=== PATIENT | male | born 1940 | race Caucasian/White ===

== ENCOUNTER → 2023-04-19 | Emergency (ER) | payer OTHER ==
[~2023-04-19] MED LIST: KETOROLAC 30 MG/ML INJ ONE
[2023-04-19 11:48] LABS: Absolute Lymphocytes (CBC) 0.8 K/uL (0.7-4.9); Hematocrit 39.4 % (39.6-49.0); Lymphocytes % 12.1 % (15.3-44.8); MCV 91.5 fL (80-100); MPV 9.4 fL (7.6-11.3); Platelets 224 thou/uL (152-406); RBC Red Blood Cell Count 4.31 M/uL (4.33-5.43)
--- NOTE | 2023-04-19 11:50 | RAD REPORT ---
EXAM DESCRIPTION: CT - CTHCSPWOC - 04/19/2023 11:39 am CLINICAL HISTORY: Trauma, head and neck injury. fall COMPARISON: No comparisons TECHNIQUE: Axial 5 mm thick images of the head were obtained. Axial 2 mm thick images of the cervical spine were obtained with sagittal and coronal reconstruction images generated and reviewed. All CT scans are performed using dose optimization technique as appropriate and may include automated exposure control or mA/KV adjustment according to patient size. FINDINGS: CT HEAD WITHOUT CONTRAST: No acute hemorrhage, hydrocephalus or extra-axial collection is identified.No areas of brain edema or midline shift. Chronic small vessel ischemic changes which are mild. Age advanced cerebral atrophy. Linear metallic structure along the inferior margin of the left maxillary sinus within the maxillary bone may be postsurgical. The paranasal sinuses and mastoids are clear.The calvarium is intact. CT CERVICAL SPINE WITHOUT CONTRAST: No fracture or traumatic subluxation.No prevertebral soft tissues swelling is identified. Proximally 2 millimeters anterolisthesis of C3 on C4 is noted. Varying degrees of neural foraminal narrowing not ed bilaterally. There is evidence of severe neural foraminal narrowing bilaterally at C4-5 and C5-6. No high-grade central spinal stenosis identified. Carotid artery calcifications. 1.6 cm left thyroid nodule. Thyroid ultrasound is recommended for thyroid nodules of this size but only if clinically ind icated. IMPRESSION: No acute intracranial or cervical spine findings.
[2023-04-19 11:55] LABS: Potassium 4.3 mEq/L (3.5-5.1)
--- NOTE | 2023-04-19 11:55 | RAD REPORT ---
EXAM DESCRIPTION: CT - Thorax Wo Con - 04/19/2023 11:44 am CLINICAL HISTORY: fall; right back pain COMPARISON: No comparisons FINDINGS: Chest Wall: Thyroid nodules, the largest measuring 2.2 cm which meets imaging criteria for thyroid ultrasound but only if clinically indicated. Lungs: Emphysema. No suspicious pulmonary nodules or acute findings. Pleura: Question trace right pneumothorax. Mediastinum/beti: No pathologic lymphadenopathy. Pulmonary arteries/Aorta: Limited evaluation without contrast. No aortic aneurysm. Heart: No significant pericardial effusion. Normal heart size. Coronary artery calcifications. Upper abdomen: No acute abnormality. Bones: Right lateral sixth and seventh and posterior eighth and ninth rib fractures. The right latera l sixth rib fracture is displaced by a 1/3 shaft with while the others are not nondisplaced. Small sc lerotic focus in the T5 vertebral body is probably a bone island. All CT scans are performed using dose optimization technique as appropriate and may include automated exposure control or mA/KV adjustment according to patient size. IMPRESSION: Right sixth through ninth rib fractures. The right sixth rib fracture is mildly displace d body others are nondisplaced. No pneumothorax. Trace right hemothorax. No other evidence of signifi cant trauma identified.
[2023-04-19 12:45] LABS: Blood Morphology Comment NOT SEEN (NOT SEEN); Platelet Estimate ADEQ
--- NOTE | 2023-04-19 12:54 | ER ---
Nurse's Notes [facility] Name: José Miguel Golden Age: 83 yrs Sex: Male : 1940 Arrival Date: 04/19/2023 Time: 11:12 Bed 5 Private MD: Diagnosis: Multiple fractures of ribs, right side Presentation: 04/19 11:23 Chief complaint: Patient states: Slipped last night and fell on boat steps. R mid ll1 back/trunk pain since. Coronavirus screen: Vaccine status: Patient reports receiving the 2nd dose of the covid vaccine. Client denies travel out of the [place] in the last 14 days. At this time, the client does not indicate any symptoms associated with coronavirus-19. Ebola Screen: Patient denies travel to an Ebola-affected area in the 21 days before illness onset. Initial Sepsis Screen: Does the patient meet any 2 criteria? No. Patient's initial sepsis screen is negative. Does the patient have a suspected source of infection? No. Patient's initial sepsis screen is negative. Risk Assessment: Do you want to hurt yourself or someone else? Patient reports no desire to harm self or others. Onset of symptoms was April 18, 2023. 11:23 Method Of Arrival: Ambulatory ll1 11:23 Acuity: MANUEL 3 ll1 11:23 Care prior to arrival: None. Mechanism of Injury: Fall from standing position. Trauma cp4 event details: Injury occurred: at home. Trauma Activation: Not Applicable Physician: ED Physician; Name: ; Notified At: ; Arrived At: Physician: General Surgeon; Name: ; Notified At: ; Arrived At: Physician: Radiology; Name: ; Notified At: ; Arrived At: Physician: Respiratory; Name: ; Notified At: ; Arrived At: Physician: Lab; Name: ; Notified At: ; Arrived At: Historical: - Allergies: 11:25 No Known Allergies; ll1 - PMHx: 11:25 None; ll1 - PSHx: 11:25 None; ll1 - Immunization history:: Adult Immunizations up to date. - Social history:: Smoking status: Patient denies any tobacco usage or history of. - Immunization history: Last tetanus immunization: - up to date. Screenin:[facility] ED Fall Risk Assessment (Adult) History of falling in the last 3 months, cp4 including since admission Yes- single mechanical fall (1 pt) Confusion or Disorientation No (0 pts) Intoxicated or Sedated No (0 pts) Impaired Gait No (0 pts) Mobility Assist Device Used No (0 pt) Altered Elimination No (0 pt) Score/Fall Risk Level 0 - 2 = Low Risk Oriented to surroundings, Maintained a safe environment, Educated pt \T\ family on fall prevention, incl call for assistance when getting out of bed, Assessed \T\ reinforced patient's understanding of fall precautions, Provided non-skid footwear, Hourly rounding (assess needs \T\ fall precautionary measures) done. Abuse screen: Denies threats or abuse. Nutritional screening: No deficits noted. Tuberculosis screening: No symptoms or risk factors identified. Primary Survey: 11:15 NO uncontrolled hemorrhage observed. A: The client is awake and alert. The airway is cp4 patent. The client is alert. Airway: patent, Patient intubated prior to arrival Oral cavity: clear. Breathing/Chest: Spontaneous respiratory effort, equal unlabored respirations, breath sounds clear bilaterally, regular pattern, symmetrical chest rise and fall. Circulation: No external hemorrhage present. Regular and strong central pulse, skin warm/dry/normal color. Disability Pupils are equal, round, reactive to light and accommodation. Exposure/Environment: A warming method has been applied: A warm blanket has been provided to the patient. Reassessment Alertness and Airway: Awake and alert. The airway is patent. Breathing: Spontaneous respiratory effort, equal unlabored respirations, breath sounds clear bilaterally, regular pattern with symmetrical chest rise and fall. Circulation: No external hemorrhage noted. Regular and strong central pulse, skin warm/dry/normal color. Disability: Pupils. Assessment: 12:28 General: Appears in no apparent distress. Behavior is calm, cooperative, appropriate cp4 for age. Pain: Complains of pain in back. Vital Signs: 11:23 BP 143 / 76; Pulse 81; Resp 18; Temp 97.3; Pulse Ox 98% ; Weight 86.18 kg; Height 5 ft. ll1 9 in. ; Pain 10/10; 12:30 BP 143 / 76; Pulse 70; Resp 18; Pulse Ox 99% ; cp4 11:23 Body Mass Index 28.06 (86.18 kg, 175.26 cm) ll1 11:23 Pain Scale: Adult ll1 Aleida Coma Score: 12:30 Eye Response: spontaneous(4). Motor Response: obeys commands(6). Verbal Response: cp4 oriented(5). Total: 15. Trauma Score (Adult): 12:30 Eye Response: spontaneous(1); Verbal Response: oriented(1); Motor Response: obeys cp4 commands(2); Systolic BP: > 89 mm Hg(4); Respiratory Rate: 10 to 29 per min(4); Aleida Score: 15; Trauma Score: 12 ED Course: 11:13 Patient arrived in ED. ra3 11:15 Halley Renee, RN is Primary Nurse. kc6 11:18 Laci Quintana DO is Attending Physician. ms3 11:25 Triage completed. ll1 11:25 Arm band placed on Patient placed in an exam room, on a stretcher. ll1 11:33 Colleen Cueva is Primary Nurse. cp4 11:33 BMP Sent. cp4 11:33 CBC with Diff Sent. cp4 11:35 Inserted saline lock: 20 gauge in left antecubital area, using aseptic technique. Blood ds4 collected. 11:41 CT Head C Spine In Process Unspecified. EDMS 11:41 CT Chest Wo Con In Process Unspecified. EDMS 12:28 Bed in low position. Call light in reach. Side rails up X 1. cp4 12:28 No provider procedures requiring assistance completed. cp4 12:30 Patient maintains SpO2 saturation greater than 95% on room air. cp4 12:53 Ezra Warren DO is Referral Physician. ms3 13:27 Provided Education on: fall and rib fractures. cp4 13:27 Patient did not have IV access during this emergency room visit. intact, bleeding cp4 controlled, No redness/swelling at site. Pressure dressing applied. 13:31 Thermoregulation: warm blanket given to patient. cp4 Administered Medications: 11:51 Drug: Ketorolac IVP 10 mg 10 mg IVP once Route: IVP; Site: right antecubital; cp4 Medication: 12:28 VIS not applicable for this client. cp4 Intake: 12:30 PO: 0ml; Total: 0ml. cp4 Output: 12:30 Urine: 0ml; Total: 0ml. cp4 Outcome: 12:53 Discharge ordered by . ms3 13:27 Discharged to home ambulatory, cp4 13:27 Condition: stable 13:27 Discharge instructions given to patient, Instructed on discharge instructions, follow up and referral plans. medication usage, Demonstrated understanding of instructions, follow-up care, medications, Prescriptions given X 2, 13:30 Patient's length of stay in the Emergency Department was greater than 2 hours. cp4 MDPatient's length of stay extended due to 13:31 Patient left the ED. cp4 Signatures: Dispatcher [employer] EDMS Alex Marie ds4 Paulino Phillips, RN RN ll1 Laci Quintana DO DO ms3 Halley Renee RN RN kc6 Colleen Cueva cp4 Floridalma Edwards ra3
--- NOTE | 2023-04-19 12:54 | EDPHYS ---
Physician Documentation [facility] Name: José Miguel Golden Age: 83 yrs Sex: Male : 1940 Arrival Date: 04/19/2023 Time: 11:12 Bed 5 Private MD: ED Physician Laci Quintana HPI: 04/19 12:53 This 83 yrs old Male presents to ER via Ambulatory with complaints of Back Injury, Fall ms3 Injury. 12:53 83-year-old male with no past medical history presents to the emergency department for ms3 right back pain status post fall by slipping on some steps on his boat last night. Patient rates his pain a 10/10. Patient denies any alleviating factors.. Historical: - Allergies: 11:25 No Known Allergies; ll1 - PMHx: 11:25 None; ll1 - PSHx: 11:25 None; ll1 - Immunization history:: Adult Immunizations up to date. - Social history:: Smoking status: Patient denies any tobacco usage or history of. - Immunization history: Last tetanus immunization: - up to date. ROS: 12:53 Constitutional: Negative for fever, and chills. Neck: Negative for injury, pain, and ms3 swelling, Cardiovascular: Negative for chest pain, and palpitations. Respiratory: Negative for shortness of breath, cough, wheezing, and pleuritic chest pain, Abdomen/GI: Negative for abdominal pain, nausea, vomiting, diarrhea, and constipation, 12:53 Back: Positive for Right-sided thoracic pain, Exam: 12:53 Constitutional: This is a well developed, well nourished patient who is awake, alert, ms3 and in no acute distress. Head/Face: Normocephalic, atraumatic. Neck: Trachea midline, no cervical lymphadenopathy. Supple, full range of motion without nuchal rigidity, or vertebral point tenderness. No Meningismus. Chest/axilla: Normal chest wall appearance and motion. Nontender with no deformity. Cardiovascular: Regular rate and rhythm with a normal S1 and S2. No gallops, murmurs, or rubs. Normal PMI, no JVD. No pulse deficits. Respiratory: Lungs have equal breath sounds bilaterally, clear to auscultation and percussion. No rales, rhonchi or wheezes noted. No increased work of breathing, no retractions or nasal flaring. Abdomen/GI: Soft, non-tender, with normal bowel sounds. No distension or tympany. No guarding or rebound. No evidence of tenderness throughout. 12:53 Back: pain, that is severe, ROM is normal, normal spinal alignment noted, vertebral tenderness, is not appreciated, muscle spasm, is not present, Right posterior ribs tender to palpation, 12:53 Skin: No contusions or ecchymosis. Vital Signs: 11:23 BP 143 / 76; Pulse 81; Resp 18; Temp 97.3; Pulse Ox 98% ; Weight 86.18 kg; Height 5 ft. ll1 9 in. ; Pain 10/10; 12:30 BP 143 / 76; Pulse 70; Resp 18; Pulse Ox 99% ; cp4 11:23 Body Mass Index 28.06 (86.18 kg, 175.26 cm) ll1 11:23 Pain Scale: Adult ll1 Aleida Coma Score: 12:30 Eye Response: spontaneous(4). Motor Response: obeys commands(6). Verbal Response: cp4 oriented(5). Total: 15. Trauma Score (Adult): 12:30 Eye Response: spontaneous(1); Verbal Response: oriented(1); Motor Response: obeys cp4 commands(2); Systolic BP: > 89 mm Hg(4); Respiratory Rate: 10 to 29 per min(4); Aleida Score: 15; Trauma Score: 12 MDM: 11:24 Patient medically screened. ms3 12:53 Differential diagnosis: sprain, vertebral fracture, Rib fracture versus pneumothorax. ms3 Data reviewed: vital signs, nurses notes, lab test result(s), radiologic studies, CT scan, and as a result, I will discharge patient. I considered the following discharge prescriptions or medication management in the emergency department Medications were administered in the Emergency Department. See MAR. Counseling: I had a detailed discussion with the patient and/or guardian regarding the historical points, exam findings, and any diagnostic results supporting the discharge/admit diagnosis, lab results, radiology results, the need for outpatient follow up, to return to the emergency department if symptoms worsen or persist or if there are any questions or concerns that arise at home. ED course: Discussed CT findings with patient. Patient to follow-up with his primary care physician in 2 to 3 days. Patient given prescription for Tylenol 3 and instructed to take ibuprofen. Patient discharged with incentive spirometer. Patient understands and agrees with plan. All questions were answered. Return precautions discussed include worsening symptoms, or any other concerns.. 04/19 11:24 Order name: CBC with Diff; Complete Time: 12:52 ms3 04/19 11:24 Order name: BMP; Complete Time: 12:12 ms3 04/19 12:46 Order name: Manual Differential; Complete Time: 12:52 EDMS 04/19 11:24 Order name: CT Head C Spine; Complete Time: 12:12 ms3 04/19 11:24 Order name: CT Chest Wo Con; Complete Time: 12:12 ms3 04/19 12:15 Order name: INCENTIVE SPIROMETRY ms3 Administered Medications: 11:51 Drug: Ketorolac IVP 10 mg 10 mg IVP once Route: IVP; Site: right antecubital; cp4 Disposition Summary: 04/19/23 12:53 Discharge Ordered Notes: Location: Home ms3 Condition: Stable ms3 Diagnosis - Multiple fractures of ribs, right side ms3 Followup: ms3 - With: Ezra Warren DO - When: 2 - 3 days - Reason: Recheck today's complaints Discharge Instructions: - Discharge Summary Sheet ms3 - Rib Fracture, Focr-dg-[id number] ms3 Forms: - Medication Reconciliation Form ms3 - Thank You Letter ms3 - Antibiotic Education ms3 - Prescription Opioid Use ms3 - Patient Portal Instructions ms3 - Leadership Thank You Letter ms3 Prescriptions: - acetaminophen-codeine 300-30 mg Oral tablet - take 1 tablet ORAL route 3 times per day; 9 tablet; Refills: 0, Product ms3 Selection Permitted - Ibuprofen 600 mg Oral Tablet - take 1 tablet ORAL route every 6 hours As needed take with food; 30 tablet; ms3 Refills: 0, Product Selection Permitted Signatures: Dispatcher [employer] Paulino Kumar RN RN ll1 Laci Quintana DO DO ms3 Colleen Cueva cp4
[2023-04-19 14:06] VITALS: BP 143/76; TEMP 97.3; O2SAT 99
== END ==
LOC: ER 11:12
DX: S22.41XA Multiple fractures of ribs, right side, initial encounter for closed fracture (principal)
CPT/HCPCS: 36415; 70450; 71250; 72125; 80048; 85025